=== PATIENT | female | born 1955 | race Caucasian/White ===

== ENCOUNTER 2020-01-06 17:02 | Emergency (ER) | payer OTHER ==
[2020-01-06] MEDS ORDERED: Lidocaine 1% with EPINEPHrine 1:100,000 20 ML MDV INFILT PRN (17:43)
[2020-01-06] MEDS ORDERED: Diphtheria,Pertussis(Acell),Tetanus Vaccine 0.5 ML Syringe IM ONE (17:43)
[2020-01-06] MEDS ORDERED: Take Home: Amoxicillin/Clavulanate K 875-125 MG Tab, 2 Tab Pack PO ONE (17:44)
--- NOTE | 2020-01-06 17:47 | EDM.PDOC ---
ED HPI GENERAL MEDICAL PROBLEM - General Chief Complaint: Skin Complaint Stated Complaint: FISH HOOK IN FINGER Time Seen by Provider: 01/06/20 17:07 Source of Information: Reports: Patient - History of Present Illness INITIAL COMMENTS - FREE TEXT/NARRATIVE: Juanita is a 64 y/o female who comes to the ER with her . She was fishing and about 35 minutes ago she embedded a fish hook in her left thumb. Reports no tetanus in a long time. Left Finger-Thumb Pain Score (Numeric/FACES): 5 - Related Data Allergies Allergy/AdvReac Type Severity Reaction Status Date / Time No Known Allergies Allergy Verified 01/06/20 17:35 Home Meds: Home Meds Amoxicillin/Potassium Clav [Augmentin 875-125 Tablet] 1 each PO BID #6 tablet 01/06/20 [Rx] Aspirin 325 mg PO DAILY 01/06/20 [History] Metoprolol Succinate [Toprol XL] 25 mg PO DAILY 01/06/20 [History] Past Medical History Cardiovascular History: Reports: Bypass, Hypertension - Past Surgical History Cardiovascular Surgical History: Reports: Coronary Artery Bypass Social & Family History - Tobacco Use Smoking Status *Q: Unknown Ever Smoked ED ROS GENERAL - Review of Systems Review Of Systems: See Below Constitutional: Reports: No Symptoms HEENT: Reports: No Symptoms Respiratory: Reports: No Symptoms Cardiovascular: Reports: No Symptoms Endocrine: Reports: No Symptoms GI/Abdominal: Reports: No Symptoms : Reports: No Symptoms Musculoskeletal: Reports: No Symptoms Neurological: Reports: Other (Foreign body in right thumb) ED EXAM, SKIN/RASH Exam: See Below Exam Limited By: No Limitations General Appearance: Alert, WD/WN, No Apparent Distress ([place] female) Ears: Hearing Grossly Normal Nose: Normal Inspection Throat/Mouth: Normal Voice Head: Atraumatic, Normocephalic Neck: Normal Inspection Respiratory/Chest: No Respiratory Distress Cardiovascular: Other (Not examined) GI/Abdominal: Soft (Female) Exam: Deferred Rectal (Female) Exam: Deferred Back Exam: Normal Inspection Extremities: Other (Note fish hook embeded in left thumb) Neurological: Alert, Oriented, CN II-XII Intact, Normal Cognition Psychiatric: Normal Affect, Normal Mood Skin: Warm, Dry, Intact, Normal Color Lymphatic: No Adenopathy Course - Vital Signs Text/Narrative:: The patient was seen by the BUS TRANSPORTATION MANAGER. The fish hook was removed. See Procedure note. He tetanus status was updated. She was given Augmentin for infection prophylaxis. Questions answered. She was given discharge instructions and the patient left the ER in stable condition. PROCEDURE NOTE: Removal of Foreign Body-Fish Hook Following review of the risks, benefits, and alternatives of the procedure verbal consent was obtained. The left thumb was anesthetized with Lidocaine 1% with Epi. The lure was cut off at the base of the treble hook. The distal portion of the hook that was left in the thumb was then easily removed with a hemostat. The thumb was then soaked in sterile water and Hibiclens. Antibiotic ointment and a bandaid were applied. Patient tolerated the procedure well. Last Recorded V/S: Last Vital Signs Temp 36.3 C 01/06/20 17:20 Pulse 78 01/06/20 17:20 Resp 16 01/06/20 17:20 BP 174/105 H 01/06/20 17:20 Pulse Ox 99 01/06/20 17:20 - Orders/Labs/Meds Orders: Active Orders 24 hr Category Date Time Status Vaccines to be Administered [RC] PER UNIT ROUTINE Care 01/06/20 17:44 Active Lidocaine 1% w/EPINEPHrine [Xylocaine 1% with Med 01/06/20 17:43 Active EPINEPHrine 1:100,000] 20 ml INFILT ONETIME PRN Medication Orders Lidocaine/Epinephrine (Xylocaine 1% With Epinephrine 1:100,000) 20 ml INFILT ONETIME PRN PRN Reason: Other Last Admin: 01/06/20 17:53 Dose: 20 ml Documented by: NICOLLE Meds: Medications Generic Name Dose Route Start Last Admin Trade Name Freq PRN Reason Stop Dose Admin Lidocaine/Epinephrine 20 ml 01/06/20 17:43 01/06/20 17:53 Xylocaine 1% With Epinephrine 1:100,000 INFILT 20 ml ONETIME PRN Administration Other Discontinued Medications Generic Name Dose Route Start Last Admin Trade Name Freq PRN Reason Stop Dose Admin Amoxicillin/Clavulanate Potassium 2 packet 01/06/20 17:44 01/06/20 17:53 Take Home: Amox/Clavulanate 875-12, 2 Tab Pac PO 01/06/20 17:45 2 packet ONETIME ONE Administration Diphtheria/Tetanus/Acell Pertussis 0.5 ml 01/06/20 17:43 01/06/20 17:52 Adacel IM 01/06/20 17:44 0.5 ml .ONCE ONE Administration Departure - Departure Time of Disposition: 18:16 Disposition: Home, Self-Care 01 Condition: Good Clinical Impression: Fish hook injury of left thumb, Tetanus-diphtheria (Td) vaccination - Discharge Information *PRESCRIPTION DRUG MONITORING PROGRAM REVIEWED*: Not Applicable *COPY OF PRESCRIPTION DRUG MONITORING REPORT IN PATIENT KEVON: Not Applicable Prescriptions: Amoxicillin/Potassium Clav [Augmentin 875-125 Tablet] 1 each PO BID #6 tablet Instructions: VIS, Tetanus, Diphtheria (Td); Tetanus, Diphtheria, Pertussis (Tdap) - CDC Referrals: PCP,None [Primary Care Provider] - Forms: ED Department Discharge Additional Instructions: -Keep the wound clean with soap and water. Watch for any signs of infection including redness, fever, or drianage. -Augmentin 875mg oral twice daily for 5 days #4(ER) #6(Rx) -Use acetaminophen or ibuprofen as needed for pain -Follow up with your PCP or return to the ER with any concerns Sepsis Event Note (ED) - Evaluation Sepsis Screening Result: No Definite Risk - Focused Exam Vital Signs: Vital Signs Temp Pulse Resp BP Pulse Ox 01/06/20 17:20 36.3 C 78 16 174/105 H 99 - My Orders Last 24 Hours: My Active Orders 01/06/20 17:43 Lidocaine 1% w/EPINEPHrine [Xylocaine 1% with EPINEPHrine 1:100,000] 20 ml INFILT ONETIME PRN 01/06/20 17:44 Vaccines to be Administered [RC] PER UNIT ROUTINE - Assessment/Plan Last 24 Hours: My Active Orders 01/06/20 17:43 Lidocaine 1% w/EPINEPHrine [Xylocaine 1% with EPINEPHrine 1:100,000] 20 ml INFILT ONETIME PRN 01/06/20 17:44 Vaccines to be Administered [RC] PER UNIT ROUTINE
== END 2020-01-06 18:28 | disposition home or self-care (01) ==
LOC: VM.ED 17:02
DX: S60.352A Superficial foreign body of left thumb, initial encounter (principal); I10 Essential (primary) hypertension; Z95.1 Presence of aortocoronary bypass graft; Z23 Encounter for immunization; Z79.82 Long term (current) use of aspirin; Z79.899 Other long term (current) drug therapy; W45.8XXA Other foreign body or object entering through skin, initial encounter
CPT/HCPCS: 90471; 90715; 99283; A9270-GY